=== PATIENT | female | born 1935 | race Caucasian/White ===

== ENCOUNTER 2016-07-11 08:05 | Day surgery (SDC) | payer MEDICARE, OTHER ==
[~2016-07-11] VITALS: Ht 172.7 cm; Wt 60.7 kg
[~2016-07-11 08:05] MED LIST: ACIDOPHILUS PO; BENICAR 20MG TA20 MG PO; BENICAR20 MG PO; CARDIO TABS PO; CITRACAL + D CA1 TAB PO; IMODIUM 2MG CAPS2 MG PO; K-DUR 2020 MEQ PO; LASIX 40MG TABL40 MG PO; NORVASC2.5 MG PO; NORVASC5 MG PO; PREDNISONE 5MG5 MG PO; PRILOSEC 20MG20 MG PO; PRILOSEC20 MG PO; SYNTHROID0.075 MG PO; SYNTHROID0.075 MG/T PO; VITAMIN D1000 IU PO; ZYLOPRIM 100MG100 MG PO
[2016-07-11 09:34] VITALS: BP 129/54; PULSE 66; TEMP 97.9
[2016-07-11] MEDS ORDERED: TYLENOL 325MG325 MG PO (09:46)
[2016-07-11] MEDS ORDERED: TESSALON P100 MG/CAP PO (09:47)
[2016-07-11] MEDS ORDERED: NORVASC 5MG5 MG/TAB PO (09:47)
[2016-07-11] MEDS ORDERED: CALCITRATE 3151 TAB PO (09:48)
[2016-07-11] MEDS ORDERED: VITAMIN D31000 I1 PO (09:48)
[2016-07-11] MEDS ORDERED: LOMOTIL 0.025 M1 TAB PO (09:49)
[2016-07-11] MEDS ORDERED: HIPREX PO (09:50)
[2016-07-11] MEDS ORDERED: TIROSINT75 MC1 PO (09:50)
[2016-07-11] MEDS ORDERED: COLESTID 1GM1 G PO (09:51)
[2016-07-11] MEDS ORDERED: BENICAR 20MG TA20 MG PO (09:51)
[2016-07-11] MEDS ORDERED: PRILOSEC 20MG20 MG PO (09:52)
[2016-07-11] MEDS ORDERED: PREDNISONE 5MG5 MG PO (09:53)
[2016-07-11] MEDS ORDERED: PREDNISONE1 MG PO (09:53)
[2016-07-11 10:25] VITALS: BP 109/43; PULSE 66
[2016-07-11 10:40] VITALS: BP 123/42; PULSE 65
[2016-07-11 10:55] VITALS: BP 126/43; PULSE 60
[2016-07-11 11:10] VITALS: BP 128/51; PULSE 63
[2016-07-11 12:41] VITALS: BP 93/48; PULSE 75
[2016-08-19 09:13] LABS: MIC AGAR DILUTION XXX
[2016-09-13] MEDS ORDERED: ROCEPHIN V500 MG/VIA IJ (09:21)
[2016-09-13] MEDS ORDERED: GENTAMICIN180 MG/502 NS (09:22)
[2016-09-13] MEDS ORDERED: ZITHROMAX 250M250 MG PO (09:23)
[2016-09-13] MEDS ORDERED: PROBIOTIC FORMU1 CAP PO (09:23)
== END 2016-07-11 11:35 | disposition home or self-care (01) ==
LOC: SDCO 08:05
PROVIDERS: Internal Medicine Pulmonary Disease
DX: R05 Cough (principal); R09.89 Other specified symptoms and signs involving the circulatory and respiratory systems; D84.9 Immunodeficiency, unspecified; Z85.3 Personal history of malignant neoplasm of breast; Z85.72 Personal history of non-Hodgkin lymphomas
CPT/HCPCS: J0330; J2704; J2920; J7120

== ENCOUNTER → 2016-07-15 | Outpatient (CLI) | payer MEDICARE, OTHER ==
[~2016-07-15] MED LIST changes: +CALCITRATE 3151 TAB PO; +COLESTID 1GM1 G PO; +GENTAMICIN180 MG/502 NS; +HIPREX PO; +LOMOTIL 0.025 M1 TAB PO; +NORVASC 5MG5 MG/TAB PO; +PREDNISONE1 MG PO; +PROBIOTIC FORMU1 CAP PO; +ROCEPHIN V500 MG/VIA IJ; +TESSALON P100 MG/CAP PO; +TIROSINT75 MC1 PO; +TYLENOL 325MG325 MG PO; +VITAMIN D31000 I1 PO; +ZITHROMAX 250M250 MG PO
== END ==
LOC: COL.RAD 10:24
DX: R05 Cough (principal)

== ENCOUNTER 2016-09-14 08:56 | Outpatient (RCR) | payer MEDICARE, OTHER ==
[2016-09-13 09:25] VITALS: BP 107/45; PULSE 70; TEMP 97.3
[2016-09-13 09:45] VITALS: BP 93/46; PULSE 66; TEMP 97.9
--- NOTE | 2016-09-13 09:47 | NUR ---
Pt bubba rocephin well. Pt discharged per ambulation with daughter after 30 min observation.
[~2016-09-14] VITALS: Ht 172.7 cm; Wt 59.5 kg
[2016-09-14 09:01] VITALS: BP 117/49; PULSE 86; TEMP 97.7
== END 2016-12-12 ==
LOC: EUO
DX: R50.9 Fever, unspecified (principal); R05 Cough; R09.1 Pleurisy
CPT/HCPCS: J0696

== ENCOUNTER → 2016-12-09 | Outpatient (CLI) | payer MEDICARE, OTHER | LOC: MC.RAD 10:08 | DX: Z12.31 Encounter for screening mammogram for malignant neoplasm of breast (principal); N64.89 Other specified disorders of breast ==

== ENCOUNTER → 2016-12-11 | Outpatient (CLI) | payer MEDICARE, OTHER ==
[~2016-12-11] MED LIST changes: +NAPROSYN 2250 MG/TAB PO
== END ==
LOC: MC.RAD 14:13
DX: N64.89 Other specified disorders of breast (principal)

== ENCOUNTER 2017-08-25 09:58 | Day surgery (SDC) | payer MEDICARE, OTHER ==
[~2017-08-25] VITALS: Ht 172.8 cm; Wt 63.1 kg
[2017-08-25] VITALS (7 sets, daily range): BP systolic 116–172; BP diastolic 38–70; PULSE 48–67; TEMP 97.8–98.4
[~2017-08-25 09:58] MED LIST changes: -NAPROSYN 2250 MG/TAB PO
[2017-08-25 10:39] LABS: HEMATOCRIT 37.4 % (37.0-47.0); HEMOGLOBIN 12.2 g/dl (12.5-16.0); MEAN CELL VOLUME 101 fl (80.0-100.0); MEAN CORPUSCULAR HEMOGLOBIN 33 pg (27.0-31.0); MEAN CORPUSCULAR HGB CONC 33 g/dl (33.0-37.0); MEAN PLATELET VOLUME 12.2 fl (7.4-10.4); PLATELET COUNT 102 K/mm3 (130-400); REDCELL DISTRIBUTION WIDTH-CV 14.4 % (11.5-14.5)
[2017-08-25] MEDS ORDERED: NAPROSYN 2250 MG/TAB PO (10:40)
[2017-08-25 10:44] LABS: CALCIUM 9.2 mg/dL (8.4-10.2); CREATININE, serum 0.79 mg/dL (0.52-1.25); POTASSIUM 3.8 mmol/L (3.4-5.0)
[2017-08-25 10:49] LABS: PROTHROMBIN TIME 11.5 SECONDS (9.7-12.8)
[2017-08-26 04:04] VITALS: BP 137/60; PULSE 64; TEMP 97.8
[2017-08-26 07:34] VITALS: BP 125/48; PULSE 58; TEMP 98.4
== END 2017-08-26 13:04 | disposition home or self-care (01) ==
LOC: COL.CAR 09:58 → MEDICAL 16:27 → COL.CAR 08-26 13:04
PROVIDERS: Internal Medicine Cardiovascular Disease
DX: I47.1 Supraventricular tachycardia (principal); R00.1 Bradycardia, unspecified; I10 Essential (primary) hypertension; E03.9 Hypothyroidism, unspecified; Z86.718 Personal history of other venous thrombosis and embolism; Z79.899 Other long term (current) drug therapy; E78.2 Mixed hyperlipidemia; Z85.3 Personal history of malignant neoplasm of breast; Z85.72 Personal history of non-Hodgkin lymphomas
CPT/HCPCS: OP; J1200; J2270; J2930; J3010; J3370; J7030; J7050; J7512; Q9967

== ENCOUNTER → 2018-07-14 | Outpatient (CLI) | payer MEDICARE, OTHER ==
[~2018-07-14] MED LIST changes: +NAPROSYN 2250 MG/TAB PO
== END ==
LOC: MC.RAD 09:45
DX: Z12.31 Encounter for screening mammogram for malignant neoplasm of breast (principal)

== ENCOUNTER → 2019-03-04 | Outpatient (CLI) | payer MEDICARE, OTHER ==
[~2019-03-04] VITALS: Ht 170.2 cm; Wt 61.7 kg
[~2019-03-04] MED LIST changes: +ELIQUIS 2.5 PO; +K-DUR20 MEQ PO; +LASIX 20MG TABL20 MG PO; +LOPRESSOR 550 MG/TAB PO; +PACERONE200 MG PO
[2019-03-04 06:45] VITALS: BP 181/91; PULSE 75
[2019-03-04 07:50] VITALS: BP 179/92; PULSE 66
== END ==
LOC: COL.RAD 06:30
DX: J90 Pleural effusion, not elsewhere classified (principal); Z95.0 Presence of cardiac pacemaker

== ENCOUNTER → 2019-06-16 | Outpatient (CLI) | payer MEDICARE, OTHER ==
[~2019-06-16] VITALS: Ht 170.2 cm; Wt 61.7 kg
[2019-06-16 11:26] VITALS: BP 172/85; PULSE 62
[2019-06-16 12:40] VITALS: BP 149/76; PULSE 64
[2019-06-16 13:41] LABS: PLEURAL FLUID RBC 45000 /mm3 (0-0); PLEURAL FLUID WBC 296 /mm3
[2019-06-16 13:43] LABS: PLEURAL FLUID APPEARANCE HAZY; PLEURAL FLUID COLOR RED
[2019-06-16 14:01] LABS: CREATININE-BODY FLUID 0.85 mg/dL; TOTAL PROTEIN,PLEURAL FLUID 2.2 gm/dL
== END ==
LOC: COL.RAD 11:09
PROVIDERS: Internal Medicine Pulmonary Disease
DX: J90 Pleural effusion, not elsewhere classified (principal); I10 Essential (primary) hypertension
CPT/HCPCS: 19804

== ENCOUNTER 2019-09-14 16:51 | Emergency (ER) | payer MEDICARE, OTHER ==
[~2019-09-14] VITALS: Ht 170.2 cm; Wt 54.5 kg
[2019-09-14 16:57] VITALS: TEMP 97.8
[2019-09-14 17:21] LABS: COLLECTION METHOD CLEAN CATCH
[2019-09-14 17:36] LABS: MUCOUS Present /lpf; PH 6 (5-8); SQUAMOUS EPITHELIAL None Seen /hpf; URINE APPEARANCE Clear; URINE BACTERIA None Seen /hpf; URINE BILIRUBIN Negative (NEGATIVE); URINE BLOOD 2+ (NEGATIVE); URINE COLOR Straw; URINE GLUCOSE Negative (NEGATIVE); URINE KETONE Negative (NEGATIVE); URINE LEUKOCYTE ESTERASE Negative (NEGATIVE); URINE NITRATE Negative (NEGATIVE); URINE PROTEIN(semi-quant) Negative (NEGATIVE); URINE UROBILINOGEN Negative (NEGATIVE)
[2019-09-14] MEDS ORDERED: VFEND 50MG50 MG PO (17:56)
[2019-09-14] MEDS ORDERED: MAG-OX 400400 MG/TAB PO (17:57)
[2019-09-14] MEDS ORDERED: CITRACAL + D CA1 TAB PO (17:57)
[2019-09-14 18:24] LABS: ALBUMIN 3.6 gm/dL (3.5-5.0); BILIRUBIN,TOTAL 0.9 mg/dL (0.0-1.0); CALCIUM 8.5 mg/dL (8.4-10.2); CREATININE, serum 0.94 (0.52-1.25); POTASSIUM 4.6 mmol/L (3.4-5.0)
[2019-09-14 18:45] LABS: HEMOGLOBIN 10.2 g/dl (12.5-16.0); MEAN CELL VOLUME 102 fl (80.0-100.0); MEAN CORPUSCULAR HEMOGLOBIN 31 pg (27.0-31.0); MEAN CORPUSCULAR HGB CONC 31 g/dl (33.0-37.0); PLATELET COUNT 122 K/mm3 (130-400); RED BLOOD COUNT 3.27 M/mm3 (4.10-5.30); REDCELL DISTRIBUTION WIDTH-CV 17.6 % (11.5-14.5)
[2019-09-14 18:47] LABS: HEMATOCRIT 33.4 % (37.0-47.0)
[2019-09-14 19:00] LABS: INR 1.3 (0.8-3.0); PROTHROMBIN TIME 14.8 SECONDS (9.7-12.8)
[2019-09-14 19:57] LABS: BAND 5 % (0-10); LYMPHOCYTE 9 % (20.0-51.0); NEUTROPHILS 56 % (42.0-75.2)
[2019-09-14 19:58] VITALS: BP 144/64; PULSE 66
[2019-09-14 20:02] LABS: PLATELET ESTIMATE NORMAL (NORMAL)
[2019-09-15 08:28] LABS: PATHOLOGY DIFF REVIEW OK +
== END 2019-09-14 20:02 | disposition home or self-care (01) ==
LOC: COL.ER 16:51
PROVIDERS: Emergency Medicine
DX: N93.9 Abnormal uterine and vaginal bleeding, unspecified (principal); E03.9 Hypothyroidism, unspecified; I48.91 Unspecified atrial fibrillation; Z85.3 Personal history of malignant neoplasm of breast; Z90.89 Acquired absence of other organs; Z86.718 Personal history of other venous thrombosis and embolism; Z95.0 Presence of cardiac pacemaker; Z79.52 Long term (current) use of systemic steroids; Z79.01 Long term (current) use of anticoagulants; Z85.72 Personal history of non-Hodgkin lymphomas
CPT/HCPCS: J7030

== ENCOUNTER 2020-01-09 12:02 | Inpatient (IN) | payer MEDICARE, OTHER ==
[~2020-01-09] VITALS: Ht 170.2 cm; Wt 59.7 kg
[2020-01-09] VITALS (165 sets, daily range): BP systolic 128; BP diastolic 46; PULSE 59; TEMP 98; O2SAT 88–97
[2020-01-09] MEDS ORDERED: PROBIOTIC FORMU1 CAP PO (12:45)
[2020-01-09 12:47] LABS: HEMATOCRIT 27.9 % (37.0-47.0); HEMOGLOBIN 8.5 g/dl (12.5-16.0); MEAN CELL VOLUME 103 fl (80.0-100.0); MEAN CORPUSCULAR HEMOGLOBIN 31 pg (27.0-31.0); MEAN CORPUSCULAR HGB CONC 31 g/dl (33.0-37.0); MEAN PLATELET VOLUME 13.7 fl (7.4-10.4); PLATELET COUNT 80 K/mm3 (130-400); REDCELL DISTRIBUTION WIDTH-CV 17.1 % (11.5-14.5)
[2020-01-09 13:09] LABS: ALBUMIN 2.6 gm/dL (3.5-5.0); BILIRUBIN,TOTAL 1.3 mg/dL (0.0-1.0); CALCIUM 8.3 mg/dL (8.4-10.2); CREATININE, serum 1.48 (0.52-1.25); POTASSIUM 3.1 mmol/L (3.4-5.0); TOTAL PROTEIN 4.5 gm/dL (6.4-8.2)
[2020-01-09 13:15] LABS: ANISOCYTOSIS 1+; BAND 5 % (0-10); HYPOCHROMIA 1+; LYMPHOCYTE 4 % (20.0-51.0); METAMYELOCYTE 5 % (0-0); NEUTROPHILS 82 % (42.0-75.2); PLATELET ESTIMATE DECREASED (NORMAL); TEAR DROP CELLS 1+
--- NOTE | 2020-01-09 14:35 | NUR ---
Contacted by warehouse technician to place a PICC in this patient. I visited with the patient regarding PICC placement. Patient reported that she has had numerous implanted ports that had been inserted and removed. 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 She does have ropey veins present in upper chest. Patient reported there is not enough for a pacemaker insertion in her chest. Questionable if patient has a stricture and/or SVC syndrome. I did visit with the emergency department physician and the decision was made at this time to start a peripheral IV and draw lactic acid. Hospitalist will make the decision if a PICC placement is needed.
--- NOTE | 2020-01-09 19:12 | NUR ---
PATIENT ADMITTED TO FLOOR AT APPROXIMATELY 1600. IMCU STATUS. ON SEPSIS PROTOCOL FOR LACTIC LEVEL OF 3.3 AND RECEIVED A 500ML BOLUS OF NS AND IS RECEIVING 1000MLS OF NS AT 75MLS/HR.. NO COMPLAINTS OF PAIN AND NO OTHER CONCERNS VOICED FROM PATIENT. ASSESSMENT COMPLETED AND FILED.
[2020-01-10] VITALS (1209 sets, daily range): BP systolic 89–119; BP diastolic 45–53; PULSE 51–59; TEMP 97.5–98.5; O2SAT 85–98
--- NOTE | 2020-01-10 02:40 | NUR ---
BP currently with systolics in the 80's. Hospitalist notified will give 500 ml bolus of ns. If not effective can initiate levophed.
--- NOTE | 2020-01-10 06:20 | NUR ---
Resting in bed at this time; no concerns or complaints.
[2020-01-10 07:11] LABS: MEAN CELL VOLUME 100 fl (80.0-100.0); MEAN CORPUSCULAR HGB CONC 31 g/dl (33.0-37.0); MEAN PLATELET VOLUME 13.9 fl (7.4-10.4); PLATELET COUNT 75 K/mm3 (130-400); RED BLOOD COUNT 2.78 M/mm3 (4.10-5.30); REDCELL DISTRIBUTION WIDTH-CV 17.2 % (11.5-14.5)
[2020-01-10 07:18] LABS: HEMATOCRIT 27.7 % (37.0-47.0); HEMOGLOBIN 8.6 g/dl (12.5-16.0); MEAN CORPUSCULAR HEMOGLOBIN 31 pg (27.0-31.0)
[2020-01-10 07:32] LABS: ALBUMIN 2.5 gm/dL (3.5-5.0); BILIRUBIN,TOTAL 0.7 mg/dL (0.0-1.0); CALCIUM 7.6 mg/dL (8.4-10.2); CREATININE, serum 1.18 (0.52-1.25); MAGNESIUM 1.5 mg/dL (1.6-2.3); POTASSIUM 4.4 mmol/L (3.4-5.0); TOTAL PROTEIN 4.4 gm/dL (6.4-8.2)
[2020-01-10 07:42] LABS: BAND 7 % (0-10); LYMPHOCYTE 2 % (20.0-51.0); NEUTROPHILS 77 % (42.0-75.2)
[2020-01-10 07:43] LABS: ANISOCYTOSIS 1+; HYPOCHROMIA 1+; PLATELET ESTIMATE DECREASED (NORMAL)
[2020-01-10 07:46] LABS: OVALOCYTES 1+; SCHISTOCYTES 1+
--- NOTE | 2020-01-10 09:59 | NUR ---
Certified Nurses Aide met with the patient to complete initial intake. The patient lives alone in [place]. The patient uses 2.5L of oxygen at night. She has a cane and walker. She states she has safety bars in the bathroom. The patient reports independence with ADLs. The patient's PCP is Dr. Brewer and patient receives medications from [facility]. The patient has advanced directives in the EMR. The patient is a readmission. She was hospitalized 12/25-12/27. The patient refused PT/OT services at that time. She also refused home health services. She states she had [facility] in the past. LAVELLE contacted Melani with [facility], she confirmed the patient had home health services July-August 30 of this year. LAVELLE discussed post acute rehab placement due to her recent admission and her fall. The patient would like to discuss this with her daughter, Clarice when she visits. LAVELLE provided Medicare.gov's list of SNF for the patient and Clarice. The patient had a fall at home and was down for several hours. LAVELLE made an APS report. Intake # [id number]. Clarice #[phone]
--- NOTE | 2020-01-10 10:13 | NUR ---
Initial visit; Patient thanked Research Quality Assurance Specialist for stopping and offering God's blessings. Patient declined prayer at this time.
--- NOTE | 2020-01-10 11:56 | NUR ---
Social Media Specialist attended clinical rounds with the team. PT/OT have been ordered.
[2020-01-10 13:23] LABS: COLLECTION METHOD CLEAN CATCH
[2020-01-10 14:04] LABS: MUCOUS Present /lpf; PH 6 (5-8); SQUAMOUS EPITHELIAL None Seen /hpf; URINE APPEARANCE Hazy; URINE BACTERIA None Seen /hpf; URINE BILIRUBIN Negative (NEGATIVE); URINE BLOOD Negative (NEGATIVE); URINE COLOR Yellow; URINE GLUCOSE Negative (NEGATIVE); URINE KETONE Negative (NEGATIVE); URINE LEUKOCYTE ESTERASE Negative (NEGATIVE); URINE NITRATE Negative (NEGATIVE); URINE PROTEIN(semi-quant) 1+ (NEGATIVE); URINE UROBILINOGEN Negative (NEGATIVE)
--- NOTE | 2020-01-10 19:26 | NUR ---
Bedside report received from bharath Moeller and BHARATH Perry.
--- NOTE | 2020-01-10 20:00 | NUR ---
Patient resting in bed. Reports feels "better" than yesterday. VS stable; no concerns at this time.
[2020-01-11] VITALS (874 sets, daily range): BP systolic 111–147; BP diastolic 40–72; PULSE 59–69; TEMP 97.5–99.2; O2SAT 82–98
--- NOTE | 2020-01-11 02:32 | NUR ---
Resting in bed with eyes shut; no concerns at this time.
[2020-01-11 05:29] LABS: MEAN CELL VOLUME 101 fl (80.0-100.0); MEAN CORPUSCULAR HGB CONC 31 g/dl (33.0-37.0); MEAN PLATELET VOLUME 13.5 fl (7.4-10.4); PLATELET COUNT 60 K/mm3 (130-400); RED BLOOD COUNT 2.66 M/mm3 (4.10-5.30); REDCELL DISTRIBUTION WIDTH-CV 16.9 % (11.5-14.5)
[2020-01-11 05:31] LABS: HEMATOCRIT 26.9 % (37.0-47.0); HEMOGLOBIN 8.3 g/dl (12.5-16.0); MEAN CORPUSCULAR HEMOGLOBIN 31 pg (27.0-31.0)
[2020-01-11 05:40] LABS: ALBUMIN 2.2 gm/dL (3.5-5.0); BILIRUBIN,TOTAL 0.6 mg/dL (0.0-1.0); CALCIUM 7.4 mg/dL (8.4-10.2); CREATININE, serum 0.84 (0.52-1.25); POTASSIUM 3.8 mmol/L (3.4-5.0); TOTAL PROTEIN 4.1 gm/dL (6.4-8.2)
[2020-01-11 06:00] LABS: HYPERSEGMENTED POLYS PRESENT; LYMPHOCYTE 3 % (20.0-51.0); METAMYELOCYTE 1 % (0-0); MYELOCYTE 1 % (0-0); NEUTROPHILS 89 % (42.0-75.2); PLATELET ESTIMATE DECREASED (NORMAL)
[2020-01-11 06:02] LABS: ANISOCYTOSIS 1+
[2020-01-11 08:24] LABS: PATHOLOGY DIFF REVIEW OK +
--- NOTE | 2020-01-11 10:12 | NUR ---
Road Inspector contacted the patient's daughter, Clarice to discuss the discharge plan. The plan is to discharge to SNF. SW discussed Medicare.gov's list of facilties in the [facility]. The first choice is [facility] and second choice is [facility]. Referrals sent. SW contacted both facilties to inform them of the referral. SW collaborated the above information with the patient's nurse.
--- NOTE | 2020-01-11 10:23 | NUR ---
The APS Worker, Shi Nagel visited with the patient this day.
--- NOTE | 2020-01-11 10:44 | NUR ---
Inspector Watch Parts attended clinical rounds with the team. The patient is on droplet precautions. The patient is to transfer to the floor.
--- NOTE | 2020-01-11 12:23 | NUR ---
Follow-up visit; Patient thanked Medical Front Desk Coordinator for looking in on her and offering God's blessings and to keep her in Medical Front Desk Coordinator's prayers.
--- NOTE | 2020-01-11 13:25 | NUR ---
Window Installation Subcontractor contacted the patient's daughter, Clarice to discuss the patient's recent Leukemia diagnosis. Clarice states they were to have a consult with Dr. Reyes but the patient ended up hospitalized. Clarice would like the patient to go to post acute rehab before having a consult and deciding on a course of care. [facility] reports they can clinically accepted. But are waiting on there finance team to get back to them.
--- NOTE | 2020-01-11 14:35 | NUR ---
[facility]
--- NOTE | 2020-01-11 15:15 | NUR ---
Juanita with [facility] reports they can follow to monitor the patient's needs but have not made a decision on acceptance.
--- NOTE | 2020-01-11 21:55 | NUR ---
Patient to medical room 314 from ICU at this time. Patient wears 2 liters oxygen and transfers from wheelchair to bed with x1 assist. Her arms and legs are edematous; She does not complain of pain or trouble breathing. Patient oriented to fall precautions and call light.
[2020-01-12 04:03] VITALS: BP 110/41; PULSE 59; TEMP 98.2
[2020-01-12 07:21] VITALS: BP 124/44; PULSE 61; TEMP 97.5
[2020-01-12 07:59] LABS: MEAN CELL VOLUME 101 fl (80.0-100.0); MEAN CORPUSCULAR HGB CONC 30 g/dl (33.0-37.0); PLATELET COUNT 57 K/mm3 (130-400); RED BLOOD COUNT 2.87 M/mm3 (4.10-5.30); REDCELL DISTRIBUTION WIDTH-CV 16.7 % (11.5-14.5)
[2020-01-12 08:00] LABS: HEMOGLOBIN 8.7 g/dl (12.5-16.0); MEAN CORPUSCULAR HEMOGLOBIN 30 pg (27.0-31.0)
[2020-01-12 08:11] LABS: ALBUMIN 2.3 gm/dL (3.5-5.0); BILIRUBIN,TOTAL 0.8 mg/dL (0.0-1.0); CALCIUM 7.7 mg/dL (8.4-10.2); CREATININE, serum 0.76 (0.52-1.25); POTASSIUM 4.1 mmol/L (3.4-5.0); TOTAL PROTEIN 4.3 gm/dL (6.4-8.2)
[2020-01-12 09:25] LABS: BAND 2 % (0-10); BASOPHIL 1 % (0-2); LYMPHOCYTE 5 % (20.0-51.0); NEUTROPHILS 78 % (42.0-75.2)
[2020-01-12 09:26] LABS: PLATELET ESTIMATE DECREASED (NORMAL); POIKILOCYTOSIS 1+
[2020-01-12 09:27] LABS: ANISOCYTOSIS 1+; HYPOCHROMIA 2+; MICROCYTOSIS 1+
--- NOTE | 2020-01-12 11:45 | NUR ---
Assessment complete. Patient sitting up on the side of the bed with occupational therapy at the time, doing well. IV site is CD&I, flushed well. No complaints of pain or discomfort at this time. Pt states that she feels tired from moving around but otherwise okay. Edema is generalized and obvious. No other needs were expressed at this time. Call light is in reach.
--- NOTE | 2020-01-12 15:54 | NUR ---
Special Effects Artist faxed updates to [facility] and to [facility].
[2020-01-12 16:54] VITALS: BP 120/47; PULSE 60; TEMP 98
--- NOTE | 2020-01-12 16:59 | NUR ---
Patient has had a good day. up to the commode multiple times throughout the day, did well, most assistance needed while initially statnding. Daughter has been at the bedside through the afternoon. No complaints of pain through the day. Will continue to monitor.
[2020-01-12 18:50] VITALS: BP 115/43; PULSE 60; TEMP 97.6
--- NOTE | 2020-01-12 21:00 | NUR ---
A/Ox4. Denies any pain or discomfort at this time. Scheduled meds adminsitered. PT requested tussin, adminstered as requested. INT to LH intact, flushed w/o complications, dressing CDI. on 2LO2NC, denies SOB. Bilateral upper and lower extremities 2-3+ edema, pulses palpable. Walker at bedside, pt able to use call for assistance to use BSC. Needs met at this time. Call light within reach.
[2020-01-12 23:09] VITALS: BP 118/44; PULSE 60; TEMP 97.9
[2020-01-13 03:54] VITALS: BP 120/43; PULSE 59; TEMP 97.9
--- NOTE | 2020-01-13 05:09 | NUR ---
Pt made no complaints during this shift. Meds administered. PRN tussin given as requested by pt prior to sleep for cough. Needs met. Call light within reach. Pillows placed under arms while laying in bed for swelling.
--- NOTE | 2020-01-13 06:59 | NUR ---
Report given BHARATH Jj
[2020-01-13 07:34] LABS: MEAN CELL VOLUME 102 fl (80.0-100.0); MEAN CORPUSCULAR HGB CONC 31 g/dl (33.0-37.0); MEAN PLATELET VOLUME 14.3 fl (7.4-10.4); PLATELET COUNT 52 K/mm3 (130-400); RED BLOOD COUNT 2.75 M/mm3 (4.10-5.30); REDCELL DISTRIBUTION WIDTH-CV 16.7 % (11.5-14.5)
[2020-01-13 07:50] LABS: CALCIUM 7.7 mg/dL (8.4-10.2); CREATININE, serum 0.78 (0.52-1.25); POTASSIUM 4.1 mmol/L (3.4-5.0)
[2020-01-13 07:59] LABS: HEMATOCRIT 27.9 % (37.0-47.0); HEMOGLOBIN 8.6 g/dl (12.5-16.0); MEAN CORPUSCULAR HEMOGLOBIN 31 pg (27.0-31.0)
[2020-01-13 08:45] LABS: BAND 8 % (0-10); LYMPHOCYTE 5 % (20.0-51.0); NEUTROPHILS 83 % (42.0-75.2)
[2020-01-13 08:46] LABS: ANISOCYTOSIS 1+; HYPOCHROMIA 1+
[2020-01-13 08:47] LABS: OVALOCYTES 1+; TEAR DROP CELLS 1+
[2020-01-13 09:25] VITALS: BP 105/46; PULSE 60; TEMP 97.8
--- NOTE | 2020-01-13 11:49 | NUR ---
The patient is to tentatively be here through the weekend. SW followed up with the patient and her daughter and reviewed d/c plan. The patient and her daughter confirm that they would like to go to [facility] upon discharge. SW notified [facility]. SW to fax updates to [facility] and will continue to follow.
[2020-01-13 12:23] VITALS: BP 132/47; PULSE 62; TEMP 97.4
[2020-01-13 16:45] VITALS: BP 111/44; PULSE 59; TEMP 97.8
--- NOTE | 2020-01-13 19:22 | NUR ---
Pt had uneventful day. Currently on 3L O2 via NC, SOB on exertion. Pt did have two incontinent episodes of BM, unable to make it to the restroom in time. No pain reported. Pt has a lot of swelling to BUE, elevated on pillows. SCD's on BLE. Call light within reach.
--- NOTE | 2020-01-13 19:26 | NUR ---
Received report from BHARATH Jj. Pt voiced no needs or concerns at this time. BUE elevated on pillows. Call light within reach.
[2020-01-13 19:40] VITALS: BP 109/44; PULSE 60; TEMP 98.6
[2020-01-14] VITALS (7 sets, daily range): BP systolic 108–144; BP diastolic 43–59; PULSE 59–61; TEMP 97.3–98.4
--- NOTE | 2020-01-14 02:05 | NUR ---
Handoff report given to BHARATH Negron.
--- NOTE | 2020-01-14 02:14 | NUR ---
Pt was sleeping upon handover. No further needs at this time. Will keep monitoring her.
--- NOTE | 2020-01-14 05:28 | NUR ---
Lisa received from BHARATH Mireles. Pt was slepping while getting handover. Pt slept all night on and off. VSS. Pt is settled on her bed, call light on reach. Bed alarm is on, no further needs at this time.
--- NOTE | 2020-01-14 09:20 | NUR ---
PT IN BED, C/O OF "HEAD FEELING WEIRD". WHEN ASKED IF VISION IS AFFECTED SHE STATED "ITS LIKE WORDS SIT ON TOP OF EACH OTHER AND ARE TOO CLOSE TOGETHER." PT DENIED DIZZINESS, DENIED ANY WORSENING WHEN PT STANDS UP OR MOVES AROUND, AND REPORTED SOME NAUSEA, PT ALSO REPORTS THAT THIS "SOMETIMES JUST HAPPENS AND GOES AWAY". PT DENIES PAIN OR DISCOMFORT, VITALS REVIEWED, ASSESSMENT PERFORMED, MEDICATIONS GIVEN. NO OTHER NEEDS AT THIS TIME.
--- NOTE | 2020-01-14 17:58 | NUR ---
PT FEELING WEAK, REPORTING INTERMITTANT SHARP PAIN ON L SIDE BUT GOES AWAY SOON IT COMES, DENIES IT BEING PRESENT AT THIS TIME. REPORTS SOME VISION CHANGE EARLY IN MORNING BUT IT HAS RESOLVED, NO OTHER NEEDS AT THIS TIME.
--- NOTE | 2020-01-14 20:05 | NUR ---
Received report from BHARATH Oneil. PT eating dinner at this time, ate 50%. 1+assist to BR with use of gait belt and walker. PT denies any pain at this time. With productive cough. SCD removed at this time, will replace later tonight. INT to RFA intact, flushed, dressing CDI. ON 3LO2, SpO2 95%,denies SOB. LH swelling, 1+. Rt arm with redness and swelling 1-2+. BUE elevated on pillows. Needs met at this time. Call light within reach.
--- NOTE | 2020-01-14 22:11 | NUR ---
Dr Colunga called and updated on pt status.
[2020-01-15 00:21] VITALS: BP 140/52; PULSE 61; TEMP 98
[2020-01-15 04:23] VITALS: BP 137/55; PULSE 60; TEMP 98.2
--- NOTE | 2020-01-15 07:00 | NUR ---
Report given to BHARATH Oneil.
[2020-01-15 07:46] LABS: MEAN CELL VOLUME 102 fl (80.0-100.0); MEAN CORPUSCULAR HGB CONC 31 g/dl (33.0-37.0); RED BLOOD COUNT 2.94 M/mm3 (4.10-5.30); REDCELL DISTRIBUTION WIDTH-CV 16.7 % (11.5-14.5)
[2020-01-15 07:51] LABS: HEMOGLOBIN 9.4 g/dl (12.5-16.0); MEAN CORPUSCULAR HEMOGLOBIN 32 pg (27.0-31.0)
[2020-01-15 07:52] LABS: PLATELET COUNT 18 K/mm3 (130-400)
[2020-01-15 08:00] VITALS: BP 102/52; PULSE 59; TEMP 97.7
[2020-01-15 08:01] LABS: CALCIUM 7.9 mg/dL (8.4-10.2); CREATININE, serum 0.83 (0.52-1.25); MAGNESIUM 1.7 mg/dL (1.6-2.3); POTASSIUM 4.6 mmol/L (3.4-5.0)
[2020-01-15 08:50] LABS: HYPOCHROMIA 1+; LYMPHOCYTE 6 % (20.0-51.0); NEUTROPHILS 86 % (42.0-75.2)
[2020-01-15 08:51] LABS: ANISOCYTOSIS 1+; PLATELET ESTIMATE DECREASED (NORMAL)
[2020-01-15 08:52] LABS: BURR CELLS 1+; OVALOCYTES 1+
--- NOTE | 2020-01-15 09:00 | NUR ---
PT STILL C/O SHARP L SIDED CHEST PAIN, PT AOX4, PT SAYS SHE IS IN BETTER SPIRITS THAN YESTERDAY, PT WEAK, AMBULATED TO BATHROOM 1 ASSIST WITH WALKER AND GAIT BELT, FRESH ICE WATER BROUGHT IN FOR PT. MEDS GIVEN, ASSESSMENT PERFORMED, EKG ORDERED, NO OTHER NEEDS. EDEMA NOTED IN RUE, L HAND AND CARRIE ANKLES.
--- NOTE | 2020-01-15 09:45 | NUR ---
pt still complaining of intermittant chest pain sharp on the l side, informed Dr. Swanson, will get EKG.
[2020-01-15 11:33] VITALS: BP 108/54; PULSE 60; TEMP 98.6
--- NOTE | 2020-01-15 12:17 | NUR ---
notified blood bank of irradiated platelet order. will have to order them.
--- NOTE | 2020-01-15 13:29 | NUR ---
EDUCATED FAMILY ON [facility] NOT BEING ABLE TO SEE PT UNTIL TOMORROW.
--- NOTE | 2020-01-15 16:12 | NUR ---
PT REFUSING VITAL SIGNS, PT ASKED TO SPEAK WITH BOAT MOTOR MECHANIC FROM [facility] CONTACTED WHO WILL CONTACT THE ALEVISM AND GET IN TOUCH WITH PT. PT APPEARS SAD.
--- NOTE | 2020-01-15 16:59 | NUR ---
PT REFUSING ANTIBIOTIC. PT ABLE TO TALK TO POT PRESS OPERATOR AND FEELS RELIEVED, APPEARS VERY TIRED AND WEAK. PT AOX4, WILL TALK TO NURSE FROM HOSPICE HOU[facility] TOMORROW. PT DENIES PAIN OR DISCOMFORT, SAYS SHE WILL NOT WANT DINNER TONIGHT.
--- NOTE | 2020-01-15 18:42 | NUR ---
Received report from Clarice SINHA. Pt asleep in bed. Call light in reach. Will continue to monitor.
[2020-01-15 19:34] VITALS: BP 109/43; PULSE 59; TEMP 97.9
--- NOTE | 2020-01-15 21:51 | NUR ---
Pt refusing all treatments. Refused all medications during this shift, requested no one take her vital signs, refused this RN listening to heart and lungs. Requests to be left undisturbed unless she calls. A&Ox4 and pleasant. Was incontinent of urine and trace amount of soft brown stool. This RN changed and cleaned up pt. Brought pt toothbrush, toothpaste, wet wash cloth, and cup of ice. Denies pain or other needs. Call light in reach. Will continue to monitor.
--- NOTE | 2020-01-16 05:31 | NUR ---
Pt has refused all treatments and assessments this shift. Resting in bed with intermittent periods of sleep. Has been incontinent of urine and small amount of stool twice. Denies pain.
[2020-01-16 06:51] LABS: MEAN CELL VOLUME 100 fl (80.0-100.0); MEAN CORPUSCULAR HEMOGLOBIN 31 pg (27.0-31.0); MEAN CORPUSCULAR HGB CONC 31 g/dl (33.0-37.0); MEAN PLATELET VOLUME 14.1 fl (7.4-10.4); PLATELET COUNT 60 K/mm3 (130-400); RED BLOOD COUNT 2.91 M/mm3 (4.10-5.30); REDCELL DISTRIBUTION WIDTH-CV 16.5 % (11.5-14.5)
[2020-01-16 07:07] LABS: CALCIUM 8.1 mg/dL (8.4-10.2); CREATININE, serum 0.94 (0.52-1.25); MAGNESIUM 1.7 mg/dL (1.6-2.3)
[2020-01-16 07:23] LABS: ANISOCYTOSIS 1+; BAND 6 % (0-10); LYMPHOCYTE 1 % (20.0-51.0); NEUTROPHILS 85 % (42.0-75.2); PLATELET ESTIMATE DECREASED (NORMAL)
--- NOTE | 2020-01-16 08:02 | NUR ---
Pt assessment complete. Pt is laying in bed upon entry, she is A/O x4. Her breathing is even and unlabored on 1L O2 via NC. Pt denies SOB. No pain reported, states she has stiffness. Pt unsure if she wants a thoracentesis. Decision made that we would discuss this with the doctor. Pt agreeable to eat a few bites in order to take her pills. No needs at this time. Call light within reach.
[2020-01-16 08:19] VITALS: BP 123/49; PULSE 60; TEMP 97.4
[2020-01-16 09:23] LABS: INR 1.1 (0.8-3.0); PROTHROMBIN TIME 12.2 SECONDS (9.7-12.8)
--- NOTE | 2020-01-16 10:22 | NUR ---
The patient's nurse informed this Office Technology Professor regarding the patient and wanting to go to hospice. The solar manufacturer's representative from [facility] to visit the patient this day at 1530. LAVELLE met with the patient and the patient's daughter to review the discharge plan. The patient plan would like to go to the [facility]. LAVELLE contacted Alka the real estate closing coordinator at the [facility] regarding the patient, left message.
--- NOTE | 2020-01-16 10:30 | NUR ---
Pt down for thoracentesis at this time.
--- NOTE | 2020-01-16 10:39 | NUR ---
I met with Alondrahillary at bedside today. She reports that the hospice house nurse is coming to see her today and I was able to pass on that we are expecting her around 1530. I had a long conversation with David during her last admission and today she has reached the decision to focus on comfort. She spoke with her writer technical publications by phone yesterday which was a big help to her and feels she has done what she needed to do in preparation for the end of her life. She is tearful at times but then states "it is all good and done for a reason." I thanked her for all the work she has done in this community for hospice care and reiterated how many lives she has touched. She declined a comfort quilt when offered and stated I should give it to someone else who would need it.
--- NOTE | 2020-01-16 11:14 | NUR ---
plastics worker Kody will be here to visit pt today at 1530. I spoke with Alka at [facility] and she reports that they will probably be able to take on Thursday, or possibly before. Basic information provided.
[2020-01-16 11:57] VITALS: BP 119/44; PULSE 59; TEMP 97.6
--- NOTE | 2020-01-16 15:50 | NUR ---
[facility] is here to visit with David and her daughter. Plan looks like a Thursday admission at [facility] If that is her final decision after this meeting today.
--- NOTE | 2020-01-16 16:18 | NUR ---
Alka with the [facility] reports they can take the patient on Thursday, 01/17. LAVELLE met with the patient and the patient's daughter, Clarice to review this plan. They agree. LAVELLE collaborated the above information with the patient's nurse and the PA.
--- NOTE | 2020-01-16 16:35 | NUR ---
Mark with the [facility] contacted this Avionics Repair Technician regarding patient admission. Mark reports they could admit the patient on 01/16 at 1100 vs 01/17. LAVELLE collaborated the above information with the patient's nurse and PA.
[2020-01-16 17:45] VITALS: BP 118/48; PULSE 60; TEMP 97.5
--- NOTE | 2020-01-16 18:25 | NUR ---
Pt refusing evening dose of antibiotic as she does not feel this is helpful short term. Asking questions about hospice, answered to best of ability. No needs at this time. Daughter at bedside.
--- NOTE | 2020-01-16 18:46 | NUR ---
Report received from Анна SINHA. Pt lying in bed. Requests not to be disturbed for vitals, assessments, or medications over night. States she will call if assistance is needed. Call light in reach. Will continue to monitor.
--- NOTE | 2020-01-17 05:53 | NUR ---
Pt resting in bed at this time. Denies needs. Refused all cares and medications this shift. Complained of generalized body aches once which was relieved by PO Tylenol. Incontinent of urine once during night.
[2020-01-17] MEDS ORDERED: ROBITUSSIN DM 105 ML PO (08:38)
[2020-01-17] MEDS ORDERED: IPRATROPIUM BROM3 M1 IH (08:38)
[2020-01-17] MEDS ORDERED: ZOFRAN ODT4 MG PO (08:39)
[2020-01-17] MEDS ORDERED: ROXANOL 20MG20 MG/ML PO (08:40)
[2020-01-17] MEDS ORDERED: TRANSDERM-0.5 MG/21 TD (08:41)
[2020-01-17] MEDS ORDERED: ATIVAN 1MG T1 MG/TAB PO (08:41)
--- NOTE | 2020-01-17 09:00 | NUR ---
PATIENT DECLINED TO TAKE MEDICATIONS OR BE ASSESSED AND HAVE VITAL SIGNS TAKEN. SHE DID ASK TO HAVE A BED BATH AND ASSITANCE DRESSING PRIOR TO LEAVING FOR HOSPICE HOUSE. STATED SHE WOULD LET STAFF KNOW WHEN SHE WAS READY. SHE WAS NOT WEARING OXYGEN AND DECLINED TO PUT IT BACK ON. INT WAS DISCONTINUED PER HER REQUEST.
--- NOTE | 2020-01-17 09:30 | NUR ---
I met with pt today and am anticipating discharge to [facility]ospice House at 11am. Pt seems very at peace with this situation although also states she is not sure what to expect from here on. She has a family wedding coming up in the next few weeks and now plans to view by video. She is pleased that her family and her dog can be at [facility] with her for visits along with her mine administrator supervisor. Support was provided to pt and her daughter who is at bedside. Plan for transfer by ambulance.
[2020-01-17 10:41] VITALS: BP 118/48; PULSE 60; TEMP 97.5
--- NOTE | 2020-01-17 11:18 | NUR ---
The patient discharged today, 01/16 to the [facility]. [facility] transported at 1115. The team, patient, and daughter, Clarice were in agreeance. SW presented the IM form to the patient and to Clarice. They understood and Clarice signed the form. A copy was provided to the patient and original was placed in the chart. SW faxed discharge orders.
--- NOTE | 2020-01-17 16:59 | NUR ---
PATIENT DISCHARGED TO HOSPICE HOUSE VIA EMS AT 1110. PERSONAL BELONGINGS SENT WITH DAUGHTER.
== END 2020-01-17 11:10 | disposition hospice, inpatient (51) | DRG 871 ==
LOC: COL.ER 12:02 → ICU 15:18 → MEDICAL 01-11 21:45
PROVIDERS: Family Medicine; Internal Medicine; Student in an Organized Health Care Education/Training Program; ADMIT Hospitalist
PROC: 0W993ZZ Drainage of Right Pleural Cavity, Percutaneous Approach (ICD-10-PCS; principal; 2020-01-16)
DX: A41.52 Sepsis due to Pseudomonas (principal); J15.1 Pneumonia due to Pseudomonas; J96.01 Acute respiratory failure with hypoxia; R65.21 Severe sepsis with septic shock; E87.2 Acidosis; J90 Pleural effusion, not elsewhere classified; C95.10 Chronic leukemia of unspecified cell type not having achieved remission; N17.9 Acute kidney failure, unspecified; E44.0 Moderate protein-calorie malnutrition; K21.9 Gastro-esophageal reflux disease without esophagitis; I48.91 Unspecified atrial fibrillation; Z90.710 Acquired absence of both cervix and uterus; Z20.828 Contact with and (suspected) exposure to other viral communicable diseases; R65.20 Severe sepsis without septic shock; D69.6 Thrombocytopenia, unspecified; E87.6 Hypokalemia; D64.9 Anemia, unspecified; E03.9 Hypothyroidism, unspecified; B34.8 Other viral infections of unspecified site; B34.1 Enterovirus infection, unspecified; Z51.5 Encounter for palliative care; J06.9 Acute upper respiratory infection, unspecified; R91.1 Solitary pulmonary nodule; E83.42 Hypomagnesemia; Z85.71 Personal history of Hodgkin lymphoma; Z85.3 Personal history of malignant neoplasm of breast
CPT/HCPCS: 99223-AI; 99232-AI; 99233-AI; 99239; J0692; J1650; J3475; J7030; J7040; J7060; J7120; J7512

== ENCOUNTER → 2020-01-09 | Outpatient (CLI) | payer MEDICARE, OTHER ==
[~2020-01-09] MED LIST changes: +DIGITEK0.125 MG PO; +LANOXIN 0.25M0.25 MG PO; +MAG-OX 400400 MG/TAB PO; +MONODOX100 PO; +TOPROL XL 25MG25 MG PO; +VFEND 50MG50 MG PO
== END ==
LOC: COL.RAD 11:00
DX: J90 Pleural effusion, not elsewhere classified (principal); J18.1 Lobar pneumonia, unspecified organism; D72.829 Elevated white blood cell count, unspecified; Z79.899 Other long term (current) drug therapy; R78.89 Finding of other specified substances, not normally found in blood
CPT/HCPCS: Q9967